=== PATIENT | male | born 1970 | race African-American/Black ===

== ENCOUNTER 2022-03-30 20:07 | Emergency (ER) | payer OTHER ==
[~2022-03-30] VITALS: Ht 172.7 cm; Wt 56.2 kg
[2022-03-30 20:22] VITALS: BP 113/80
--- NOTE | 2022-03-30 20:32 | NUR ---
ambulatory to bed 6
--- NOTE | 2022-03-30 20:38 | NUR ---
Dr. Hanson examining patient.
[2022-03-30] MEDS ORDERED: METOCLOPRAMIDE 10 MG/2 ML INJ VIAL ONE (20:55)
[2022-03-30] MEDS ORDERED: diphenhydrAMINE 50 MG/ML VIAL IVP ONE (20:55)
[2022-03-30] MEDS ORDERED: METOCLOPRAMIDE 10 MG/2 ML INJ VIAL IVP ONE (20:55)
[2022-03-30] MEDS ORDERED: diphenhydrAMINE 12.5 MG/5 ML UDC ONE (20:56)
--- NOTE | 2022-03-30 21:10 | NUR ---
20G IV CATH LEFT UPPER FOREARM
--- NOTE | 2022-03-30 21:27 | NUR ---
LABS DONE AND SENT TO LAB
[2022-03-30 21:34] LABS: BASOPHILS % (AUTO) 0.3 % (0.0-2.0); EOSINOPHILS # (AUTO) 0.1 K/uL (0-0.4); EOSINOPHILS % (AUTO) 1.4 % (0.0-4.0); HEMATOCRIT 41.2 % (36-52); HEMOGLOBIN 13.7 g/dL (12.0-18.0); LYMPHOCYTES # (AUTO) 0.3 K/uL (2.0-11.5); LYMPHOCYTES % (AUTO) 3.8 % (20.5-51.1); MEAN CORPUSCULAR HEMOGLOBIN 31 pg (27-31); MEAN CORPUSCULAR HGB CONC 33 g/dL (33-37); MEAN CORPUSCULAR VOLUME 94.7 fL (80-94); MONOCYTES # (AUTO) 0.5 K/uL (0.8-1.0); MONOCYTES % (AUTO) 4.9 % (1.7-9.3); NEUTROPHILS # (AUTO) 8.3 K/uL (1.8-7.7); NEUTROPHILS % (AUTO) 89.6 % (42.2-75.2); PLATELET COUNT (AUTO) 273 K/uL (140-450); RED BLOOD CELL COUNT(AUTO) 4.36 MIL/uL (4.20-6.10); RED CELL DISTRIBUTION WIDTH 12.5 % (11.6-13.7); WHITE BLOOD COUNT (AUTO) 9.3 K/uL (4.8-10.8)
[2022-03-30 21:51] LABS: ALBUMIN 3.4 g/dL (3.4-5.0); CARBON DIOXIDE 22.2 mmol/L (21-32); POTASSIUM 4.2 mmol/L (3.5-5.1); TOTAL BILIRUBIN 0.5 mg/dL (0.0-1.0)
--- NOTE | 2022-03-30 22:07 | NUR ---
ER MD AT BEDSIDE SPEAKING WITH PATIENT
--- NOTE | 2022-03-30 22:21 | NUR ---
PATIENT TAKEN TO CT
--- NOTE | 2022-03-30 22:31 | NUR ---
PT BACK FROM CT
--- NOTE | 2022-03-31 00:41 | NUR ---
PT UP TO BATHROOM. NO DIZZINESS. NO NAUSEA. PT RESTING IN BED. SIDE RAILS UP
--- NOTE | 2022-03-31 03:29 | NUR ---
PT SLEEPING ; VITALS WNL .
[2022-03-31] MEDS ORDERED: PSEU120T22 PO (04:00)
[2022-03-31 04:15] VITALS: BP 97/69
--- NOTE | 2022-03-31 04:15 | NUR ---
Patient discharged with v/s stable. Written and verbal after care instructions given and explained. Patient alert, oriented and verbalized understanding of instructions. Ambulatory with steady gait. All questions addressed prior to discharge. ID band removed. Patient advised to follow up with PMD. Rx of PSEUDOEPHEDRINE HCI given. Patient educated on indication of medication including possible reaction and side effects. Opportunity to ask questions provided and answered.
--- NOTE | 2022-03-31 04:55 | NUR ---
The patient's care was reviewed and supervised by Maira Arce RN. Chart checked.
== END 2022-03-31 04:15 | disposition home or self-care (01) ==
LOC: MED 20:07
DX: R51.9 Headache, unspecified (principal); R11.2 Nausea with vomiting, unspecified; C81.90 Hodgkin lymphoma, unspecified, unspecified site
CPT/HCPCS: 36415; 70450; 70496; 70498; 80053; 83690; 85025; 96374; 96375; 99285; J1200; J2765; Q9967; Q0163